=== PATIENT | male | born 1980 | race Two or more races ===

== ENCOUNTER 2022-02-19 15:00 | Emergency (ER) | payer MEDICAID, SELFPAY ==
--- NOTE | ~2022-02-19 | XR_ITS ---
EXAMINATION: XR foot RT min 3V, XR ankle RT min 3V CLINICAL INFORMATION: Reason for Exam pain/swelling COMPARISON: None. TECHNIQUE: AP and oblique views right ankle; 3 views right foot FINDINGS: Right ankle: No acute fracture or dislocation. Ankle mortise is congruent and intact. Ankle and subtalar joint spaces are maintained. Soft tissue swelling about the medial and lateral aspect of the ankle. Right foot: No acute fracture or dislocation. Lucency with sclerotic rim in the base of the great toe phalanx, presumably large subchondral cyst with minimal marginal osteophyte formation. Joint spaces are maintained. Minimal osteophyte formation noted at the calcaneocuboid joint suggesting mild degenerative changes as well. Normal alignment at the Lisfranc joint. No ankle joint effusion. XR/XR foot RT min 3V IMPRESSION: 1. No acute fracture or dislocation identified. 2. Soft tissue swelling about the ankle. 3. 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
--- NOTE | ~2022-02-19 | US_ITS ---
EXAMINATION: US VENOUS ULTRASOUND WITH DOPPLER LOWER EXTREMITY, RIGHT CLINICAL INFORMATION: Pain and swelling. Question DVT. COMPARISON: None TECHNIQUE: Ultrasound of the deep veins is performed from the hip to the calf with compression sonography and color and pulse Doppler assessment. Spectral analysis with color-flow imaging is performed. FINDINGS: There is normal venous compression and respiratory variation and augmented flow. The visualized common femoral vein, superficial femoral vein, profunda femoral vein, popliteal vein, and the trifurcation region shows no evidence of deep venous thrombosis. There is no significant popliteal fossa cyst. If the patient's symptoms persist, followup ultrasound in 5 days 7 days might be of value to exclude proximal propagation from a non-visualized calf vein. US/US venous duplex LE RT IMPRESSION: No DVT demonstrated in the right lower extremity.
--- NOTE | ~2022-02-19 | XR_ITS ---
EXAMINATION: XR foot RT min 3V, XR ankle RT min 3V CLINICAL INFORMATION: Reason for Exam pain/swelling COMPARISON: None. TECHNIQUE: AP and oblique views right ankle; 3 views right foot FINDINGS: Right ankle: No acute fracture or dislocation. Ankle mortise is congruent and intact. Ankle and subtalar joint spaces are maintained. Soft tissue swelling about the medial and lateral aspect of the ankle. Right foot: No acute fracture or dislocation. Lucency with sclerotic rim in the base of the great toe phalanx, presumably large subchondral cyst with minimal marginal osteophyte formation. Joint spaces are maintained. Minimal osteophyte formation noted at the calcaneocuboid joint suggesting mild degenerative changes as well. Normal alignment at the Lisfranc joint. No ankle joint effusion. XR/XR ankle RT min 3V IMPRESSION: 1. No acute fracture or dislocation identified. 2. Soft tissue swelling about the ankle. 3. 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
[2022-02-19 15:30] VITALS: BP 126/63; PULSE 98; RESP 18; TEMP 37.1; O2SAT 100; BMI 22.3
[2022-02-19 17:05] LABS: MANUAL DIFF FLAG NO
[2022-02-19 17:09] LABS: Basophils Percent Auto 0.3 % (0-2); Eosinophils Absolute Auto 0.1 X10*3/uL (0.0-0.4); Eosinophils Percent Auto 0.7 % (0-4); Hematocrit 37.7 % (42.0-52.0); Hemoglobin 12.7 g/dl (14.0-18.0); Imm Gran Abs Auto 0.04 X10*3/uL (0.00-0.03); Imm Gran Pct Auto 0.4 % (0.0-0.4); Lymphocytes Percent Auto 18.5 % (20-40); Mean Corpuscular HGB Conc 33.7 g/dl (31.0-36.0); Mean Corpuscular Hemoglobin 29.9 pg (27.0-33.0); Mean Corpuscular Volume 88.7 fL (80.0-98.0); Mean Platelet Volume 9.9 fL (9.4-12.4); Monocytes Absolute Auto 1.3 X10*3/uL (0.1-1.2); Monocytes Percent Auto 11.7 % (2-11); Neutrophils Absolute Auto 7.3 x10*3/uL (2.0-8.3); Neutrophils Percent Auto 68.4 % (45-73); Platelet Count 273 X10*3/uL (160-400); Red Blood Count 4.25 X10*6/uL (4.60-5.80); Red Cell Distribution Width 12.9 % (11.0-16.0); White Blood Count 10.7 X10*3/uL (4.8-10.8)
--- NOTE | 2022-02-19 17:10 | ED_ITS ---
HPI - Extremity Injury (Lower) General Chief Complaint: Extremity Injury, Lower Stated Complaint: fx on right foot? Time Seen by Provider: 02/19/22 15:45 Source: patient Mode of arrival: wheelchair Limitations: no limitations History of Present Illness HPI Narrative: Patient comes to the emergency room complaining of swelling and pain in the right ankle. Patient states that 2 days ago he had an injury over his ankle, then today, he injured it again his ankle this time a bit lower than the original injury. Patient states that he hit his ankle against a car [place], possibly his ankle rolled. Patient complaining pain all over his foot especially around the ankle area going up his calf. Patient states the calf is very tender to touch. Patient denies fever or chills Related Data Allergies Allergy/AdvReac Type Severity Reaction Status Date / Time No Known Allergies Allergy Unverified 02/28/20 18:32 Review of Systems Review of Systems: Constitutional : No Weight loss, No Fever, No Chills, No Night Sweats, No Fatigue, No Malaise ENT/Mouth : No Hearing loss, No Ear Pain, No Nasal Congestion, No Sinus Pain, No Hoarseness, No sore throat, No Rhinorrhea, No Swallowing Difficulty Eyes: No Eye Pain, No Swelling, No Redness, No Foreign Body, No Discharge, No Vision Changes Cardiovascular : No Chest Pain, No SOB, No Dyspnea on Exertion, No Orthopnea, No Edema, No Palpitations Respiratory : No Cough, No Sputum, No Wheezing, No Smoke Exposure, No Dyspnea Gastrointestinal : No Nausea, No Vomiting, No Diarrhea, No Constipation, No abdominal Pain, No Hematochezia, No Melena Genitourinary : no irregular bleeding, No Dysuria, No Urinary Frequency, No Con turia, No Urinary Incontinence, No Urgency, No Flank Pain, No Urinary Flow Changes, No Hesitancy Musculoskeletal : Patient complaining of right ankle pain, swelling from the foot to above the ankle, complaining of calf pain Skin : No Skin Lesions, see extremity above Neuro : No Weakness, No Numbness, No Paresthesias, No Loss of Consciousness, No Dizziness, No Headache Psych : No Anxiety/Panic, No Depression, No SI/HI/AH/VH, No Social Issues, Heme/Lymph: No Bruising, No Bleeding,No Lymphadenopathy Endocrine : No Polyuria, No Polydipsia, No Temperature Intolerance [facility] Social History Social History Advance Directives: No Advance Directives Information Provided: No Physical Exam Vital Signs: Vital Signs: Last Vital Signs Temp 98.7 F 02/19/22 15:30 Pulse 98 02/19/22 15:30 Resp 18 02/19/22 15:30 BP 126/63 02/19/22 15:30 Pulse Ox 100 02/19/22 15:30 O2 Del Method 02/19/22 15:30 BMI result Body Mass Index 22.3 Const: Other: Appearance: Alert. Oriented X3. No acute distress. Eyes: Pupils equal, round and reactive to light. ENT: Pharynx normal. Neck: Normal inspection. Neck supple. No lymph nodes noted. No crepitus CVS: Normal heart rate and rhythm. Pulses normal. Normal S1 and S2 Respiratory: No respiratory distress. Breath sounds normal. No Wheezing. No rales Abdomen: Soft and nontender. No rigidity. No distention. Skin: Skin warm and dry. Normal skin color. Normal skin turgor. Extremities: Left lower extremity within normal limits, patient has erythema from the mid foot to the ankle. Plus one pitting edema, erythema up to the mid calf, pain to palpation in the calf Neuro: Oriented X 3. No motor deficit. No sensory deficit. Moving all extremities. No slurred speech. CN 2 through 12 grossly intact Psych: calm, cooperative, normal affect Course Course Course Narrative: I was informed by the patient's nurse that before the x-rays, labs and ultrasound resolved, the patient eloped. Did not discuss the x-ray findings labs or ultrasound with the patient. Ultrasound is still pending. X-rays do not show any acute fracture or dislocation, there is soft tissue swelling in the ankle. Patient was well aware that we were doing the ultrasound to rule out DVT At this time, 19:16, the ultrasound has not been read by radiology yet, as mentioned above, patient already eloped MDM - Extremity Injury (Lower) Lab Data Result diagrams: 02/19/22 16:59 02/19/22 16:59 Labs: Lab Results 02/19/22 02/19/22 02/19/22 Range/Units 16:58 16:59 16:59 WBC 10.7 (4.8-10.8) X10*3/uL RBC 4.25 L (4.60-5.80) X10*6/uL Hgb 12.7 L (14.0-18.0) g/dl Hct 37.7 L (42.0-52.0) % MCV 88.7 (80.0-98.0) fL MCH 29.9 (27.0-33.0) pg MCHC 33.7 (31.0-36.0) g/dl RDW 12.9 (11.0-16.0) % Plt Count 273 (160-400) X10*3/uL MPV 9.9 (9.4-12.4) fL Immature Gran % (Auto) 0.4 (0.0-0.4) % Neut % (Auto) 68.4 (45-73) % Lymph % (Auto) 18.5 L (20-40) % Bladen % (Auto) 11.7 H (2-11) % Eos % (Auto) 0.7 (0-4) % Baso % (Auto) 0.3 (0-2) % Lymph # (Auto) 2.0 (1.2-4.9) X10*3/uL Bladen # (Auto) 1.3 H (0.1-1.2) X10*3/uL Eos # (Auto) 0.1 (0.0-0.4) X10*3/uL Baso # (Auto) 0.0 (0.0-0.2) X10*3/uL Abs Immat Gran (auto) 0.04 H (0.00-0.03) X10*3/uL Absolute Neuts (auto) 7.3 (2.0-8.3) x10*3/uL Absolute Nucleated RBC 0.000 (0.0-0.012) X10*3/uL Nucleated RBC % (auto) 0.0 (0.0-0.2) /100WBC Sodium 138 (135-145) mmol/L Potassium 4.0 (3.3-5.1) mmol/L Chloride 100 (96-108) mmol/L Carbon Dioxide 27 (22-29) mmol/L Anion Gap 15 (12-20) BUN 10 (9-16) mg/dL Creatinine 0.86 (0.5-1.4) mg/dL Estim Creat Clear Calc 95.2 Estimated GFR > 60 Random Glucose 71 (60-115) mg/dL Lactic Acid 0.9 (0.5-2.0) mmol/L Calcium 9.0 (8.4-10.2) mg/dL Discharge Plan Discharge Clinical Impression: Acute ankle pain, Right leg swelling Patient Disposition: Elopement
[2022-02-19 17:18] LABS: Lactic Acid 0.9 mmol/L (0.5-2.0)
[2022-02-19 17:21] LABS: Anion Gap 15 (12-20); Blood Urea Nitrogen 10 mg/dL (9-16); Carbon Dioxide 27 mmol/L (22-29); Chloride 100 mmol/L (96-108); Creatinine Clr Calc Pharmacy 95.2; Estimated Glomerular Filt Rate > 60; Glucose Random 71 mg/dL (60-115); Sodium 138 mmol/L (135-145)
--- NOTE | 2022-02-19 19:13 | PC.NURSE ---
Addendum entered by Kiran Nick RN 02/19/22 19:15: States they can just call me with the results. Left abruptly. Original Note: pt demanding to leave. This RN explained to pt that we were still waiting for labs/ultrasound results. Declined to wait, states he has kids at home to take care of
== END 2022-02-19 19:17 | disposition left against medical advice (07) ==
PROVIDERS: Emergency Provider Emergency Medicine
DX: M25.571 Pain in right ankle and joints of right foot (principal); R60.0 Localized edema; Z79.899 Other long term (current) drug therapy
CPT/HCPCS: 36415; 73610; 73630; 80048; 83605; 85025; 87040; 93971; 99282; 99284